=== PATIENT | female | born 1975 | race Caucasian/White ===

== ENCOUNTER → 2019-08-25 | Outpatient (CLI) | payer BC | LOC: MC.RAD 09:15 | DX: Z12.31 Encounter for screening mammogram for malignant neoplasm of breast (principal); N63.11 Unspecified lump in the right breast, upper outer quadrant ==

== ENCOUNTER → 2019-08-27 | Outpatient (CLI) | payer BC | LOC: MC.RAD 13:52 | DX: Z00.00 Encounter for general adult medical examination without abnormal findings (principal); Z12.31 Encounter for screening mammogram for malignant neoplasm of breast; N63.10 Unspecified lump in the right breast, unspecified quadrant ==

== ENCOUNTER → 2021-01-16 | Outpatient (CLI) | payer OTHER | LOC: MC.RAD 10:00 | DX: Z12.31 Encounter for screening mammogram for malignant neoplasm of breast (principal) ==

== ENCOUNTER → 2022-05-25 | Outpatient (CLI) | payer OTHER | LOC: MC.RAD 12:59 | DX: Z12.31 Encounter for screening mammogram for malignant neoplasm of breast (principal) ==

== ENCOUNTER 2022-07-15 14:45 | Observation (INO) | payer OTHER ==
[2022-07-15] VITALS (8 sets, daily range): BP systolic 109–119; BP diastolic 73–82; PULSE 77–97; TEMP 97.7
[~2022-07-15] VITALS: Ht 11.4 cm; Wt 82.6 kg
[2022-07-15 15:23] LABS: COLLECTION METHOD CLEAN CATCH
[2022-07-15 15:30] LABS: BASO % 0.2 % (0.0-2.0); EOS % 0.2 % (0.0-4.0); GRAN % 84.1 % (42.2-75.2); HEMATOCRIT 41.9 % (37.0-47.0); HEMOGLOBIN 14.6 g/dl (12.5-16.0); LYMPH # 1.6 K/mm3 (1.2-3.4); LYMPH % 10.1 % (20.0-51.0); MEAN CELL VOLUME 99 fl (80.0-100.0); MEAN CORPUSCULAR HEMOGLOBIN 35 pg (27-31); MEAN CORPUSCULAR HGB CONC 35 g/dl (33.0-37.0); MEAN PLATELET VOLUME 9.4 fl (7.4-10.4); MONO # 0.8 K/mm3 (0.1-0.6); MONO % 4.9 % (1.7-9.3); PLATELET COUNT 315 K/mm3 (130-400); RED BLOOD COUNT 4.23 M/mm3 (4.10-5.30); REDCELL DISTRIBUTION WIDTH-CV 12.4 % (11.5-14.5)
[2022-07-15 15:42] LABS: ALBUMIN 4.4 gm/dL (3.5-5.0); BILIRUBIN,TOTAL 0.5 mg/dL (0.2-1.2); CALCIUM 9.1 mg/dL (8.4-10.2); CREATININE, serum 1.1 mg/dL (0.57-1.11); POTASSIUM 3.6 mmol/L (3.5-4.5)
[2022-07-15 15:47] LABS: URINE APPEARANCE Clear (CLEAR/HAZY); URINE BLOOD Negative (NEGATIVE); URINE COLOR Yellow (YELLOW); URINE GLUCOSE Negative (NEGATIVE); URINE KETONE Negative (NEGATIVE); URINE NITRATE Negative (NEGATIVE); URINE PROTEIN(semi-quant) Negative (NEGATIVE); URINE UROBILINOGEN 0.2 E.U/dL (0.2-1.0)
[2022-07-15 15:52] LABS: SQUAMOUS EPITHELIAL 0-2 /hpf (0-10); URINE BACTERIA None Seen /hpf (NONE SEEN); URINE RBC None Seen /hpf (0-2)
[2022-07-15] MEDS ORDERED: NORCO 325 MG-51 TAB PO (17:34)
--- NOTE | 2022-07-15 20:04 | NUR ---
PATIENT WAS RECEIVED FROM PACU ON A BED.PATIENT IS AOX4.PATIENT ADMISSION ORIENTATION DONE.PATIENT IS WITH THE IN THE ROOM.PATIENT DENIES PAIN.PATIENT HAS 3 LAP SITES WHICH ARE CDI.NO OTHER NEEDS AT THIS TIME.
--- NOTE | 2022-07-15 22:25 | NUR ---
PATIENTS MED REC NOT DONE.DISCHARGE HOME MEDS WERE ALREADY EDITED BY THE DOCTOR.PATIENT STATES THAT SHE WILL SPEND THE NIGHT AND DISCHARGE PROBABLY IN THE AM.
[2022-07-16 00:33] VITALS: BP 101/62; PULSE 87; TEMP 98.7
--- NOTE | 2022-07-16 04:32 | NUR ---
PATIENT WAS OFFERED CRACKERS AND WATER.PATIENT TOLERATED ORAL INTAKE WELL.DENIES NAUSEA AND ANY ABD DISCOMFORT.PATIENT IS A PROBABLE DISCHARGE TODAY.
[2022-07-16 04:33] VITALS: BP 107/66; PULSE 90; TEMP 98
--- NOTE | 2022-07-16 09:10 | NUR ---
Pt doing well this morning. Dr Rivera has rounded and pt is ready for discharge. Pt spouse is at the bedside. Reviewed discharge instructions with her to include follow up appointment and prescriptions. Gave PRN motrin prior to her leaving. INT removed and pt escorted out
--- NOTE | 2022-07-16 09:57 | NUR ---
Initial visit; Patient and her thanked Receiver Stocker for looking in on her and offering God's blessings. Patient about to be discharged, stated she was doing well.
== END 2022-07-16 09:12 | disposition home or self-care (01) ==
LOC: COL.ER 14:45 → SURG 16:29
PROVIDERS: Emergency Medicine; ADMIT Surgery
DX: K35.30 Acute appendicitis with localized peritonitis, without perforation or gangrene (principal); K38.1 Appendicular concretions; Z28.310 Unvaccinated for COVID-19; Z28.9 Immunization not carried out for unspecified reason
CPT/HCPCS: G0378; J2270; J2405; J2543; J2704; J3010; J7030; J7120; Q9967

== ENCOUNTER → 2024-07-16 | Outpatient (CLI) | payer OTHER ==
[~2024-07-16] MED LIST: NORCO 325 MG-51 TAB PO
== END ==
LOC: MC.RAD 11:07
DX: Z12.31 Encounter for screening mammogram for malignant neoplasm of breast (principal); N64.89 Other specified disorders of breast